=== PATIENT | female | born 1980 | race Caucasian/White ===

== ENCOUNTER 2017-06-07 20:59 | Emergency (ER) | payer OTHER ==
[~2017-06-07 20:59] MED LIST: ALBUTEROL0.09 MG/A1 INH; AMOXICILLIN500 M1 PO; AUGMENTIN 875 M1 TAB PO; BACTRIM DS 8001 TAB PO; MOBIC15 MG PO; MOTRIN 600 MG600 MG PO; ORSYTHIA 0.02 M1 TAB PO; PREDNISONE 20MG20 MG PO; PREDNISONE50 MG PO; TESSALON PERLE100 MG PO; ZITHROMAX Z-PA250 M1 PO
[2017-06-07 21:55] LABS: ABSOLUTE BASOPHIL COUNT 0 /CUMM (0.0-0.2); ABSOLUTE EOSINOPHIL COUNT 0.2 /CUMM (0.0-0.7); ABSOLUTE GRANULOCYTE CT 6.2 /CUMM (1.4-6.5); ABSOLUTE LYMPH COUNT 2.5 /CUMM (1.2-3.4); ABSOLUTE MONOCYTE COUNT 0.7 /CUMM (0.10-0.60); BASOPHIL % 0.3 % (0.0-2.0); EOSINOPHIL % 2.1 % (0-5); GRANULOCYTE % 64.2 % (42.2-75.2); MEAN CORPUSCULAR VOLUME 93.9 FL (81.0-99.0); MEAN PLATELET VOLUME 8.9 FL (7.4-10.4); PLATELET COUNT 259 /CUMM (130-400); RBC DISTRIBUTION WIDTH 14.4 % (11.5-14.5); RED BLOOD CELL CT 4.48 /CUMM (4.20-5.40); WHITE BLOOD CELL COUNT 9.6 /CUMM (4.8-10.8)
--- NOTE | 2017-06-07 22:02 | ED DYSPNEA/ASTHMA COMPLAINT ---
History of Present Illness General Chief Complaint: General Adult Stated Complaint: ANXIETY ATTACK Source: patient Exam Limitations: no limitations Vital Signs & Intake/Output Vital Signs & Intake/Output Vital Signs Date Time Temp Pulse Resp B/P B/P Pulse O2 O2 Flow FiO2 Mean Ox Delivery Rate 06/07 2232 76 20 122/72 98 Room Air 06/07 2125 98.9 69 16 127/82 100 Room Air ED Intake and Output 06/08 0000 06/07 1200 Intake Total Output Total Balance Patient 140 lb Weight Weight Reported by Patient Measurement Method Allergies Coded Allergies: NO KNOWN ALLERGIES (12/26/13) Reconcile Medications Amoxicillin 500 MG TABLET 1 TAB PO BID INFECTION Ethinyl Estradiol/Levonorges (Orsythia 0.02 MG-0.1 MG) 1 TAB TAB 1 TAB PO DAILY CONTROL (Reported) Hydroxyzine Pamoate (Vistaril) 25 MG CAPSULE 1 CAP PO TID PANIC Sulfamethoxazole/Trimethopri (Bactrim Ds 800 MG-160 MG) 1 TAB TAB 1 TAB PO BID INFECTION Triage Note: PT RECENTLY SEEN IN A HOSPITAL IN [place] FOR ANXIETY WHERE SHE WAS GIVEN VISTARIL WHICH PUT HER TO SLEEP. JUST GOT HOME FROM [place]IP AND FEELS LIKE "EVERYTHING IS CAVING IN" AND ON HER. FEELS CHEST TIGHTNESS, SOB AND RAPID BREATHING. STATES IT RADIATES INTO BACK AND INTO LEFT KIDNEY AREA WHICH IS THE ONLY KIDNEY SHE HAS. ANXIETY AND SYMPTOMS WORSE AT NIGHT WHEN LAYING DOWN. FEELS LIGHT THROAT IS CLOSING. ? WHETHER SHE WAS BIT BY A TICK PRIOR TO VACATION. DID NOT NOTICE A RASH BUT HAS BEEN PULLING TICKS OFF HER. DENIES SI/HI AND DENIES RECENT MED CHANGES OR PSYCHOSOCIAL STRESSORS. 1/2 PPD SMOKER AND ON BC. Triage Nurses Notes Reviewed? yes Onset: Gradual Duration: week(s):, waxing and waning Timing: recent history Severity: moderate Activities at Onset: rest, sleep Prior Episodes/Possible Cause: frequent episodes Modifying Factors: Improves With: rest. Associated Symptoms: "I panic" : No Patient currently breastfeeds: No HPI: 36 yo woman presents with 1 week history of the sensation of panic, which occurs prior to going to bed. "I was on vacation in [place]... I lay down and felt suddenly very anxious, like the world was closing in on me." She notes that she has had similar symptoms, "nearly every night," for the past week. "I lie down and when my head hits the pillow, I feel all panicky." She notes the sensation of shortness of breath, with palpitations. These symptoms self-tracy after 10-15 minutes. She is otherwise well, cannot identify the trigger. Past History Travel History Traveled to [place] past 21 day No Medical History Any Pertinent Medical History? 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 No Review of Systems Review of Systems Constitutional: Reports: no symptoms. EENTM: Reports: no symptoms. Respiratory: Reports: no symptoms. Cardiovascular: Reports: no symptoms. GI: Reports: no symptoms. Genitourinary: Reports: no symptoms. Musculoskeletal: Reports: no symptoms. Skin: Reports: no symptoms. Neurological/Psychological: Reports: no symptoms. Hematologic/Endocrine: Reports: no symptoms. Immunologic/Allergic: Reports: no symptoms. All Other Systems: Reviewed and Negative Physical Exam Physical Exam General Appearance: well developed/nourished, no apparent distress Head: atraumatic, normal appearance Eyes: Bilateral: normal appearance. Ears, Nose, Throat: normal pharynx, normal ENT inspection Neck: normal inspection, supple, full range of motion Respiratory: normal breath sounds, chest non-tender, no respiratory distress, quiet respiration, lungs clear Cardiovascular: regular rate/rhythm Gastrointestinal: normal bowel sounds, soft, non-tender, no organomegaly Extremities: normal inspection Neurologic/Psych: no motor/sensory deficits, awake, alert, oriented x 3 Skin: intact, normal color, warm/dry Core Measures ACS in differential dx? No Severe Sepsis Present: No Septic Shock Present: No Progress Differential Diagnosis: panic vs other. Plan of Care: Orders Procedure Date/time Status TROPONIN LEVEL 06/07 2132 Complete D-DIMER 06/07 2132 Complete COMPREHENSIVE METABOLIC PANEL 06/07 2132 Complete CBC WITHOUT DIFFERENTIAL 06/07 2132 Complete EKG 06/07 2131 Active Laboratory Tests 06/07/17 2140: Anion Gap 12, Estimated GFR > 60, BUN/Creatinine Ratio 18.8, Glucose 94, Calcium 10.1, Total Bilirubin 0.6, AST 20, ALT 24, Alkaline Phosphatase 50, Troponin I < 0.01, Total Protein 7.2, Albumin 4.6, Globulin 2.6, Albumin/Globulin Ratio 1.8, D-Dimer High Sensitivty < 200, CBC w Diff NO MAN DIFF REQ, RBC 4.48, MCV 93.9, MCH 31.0, RDW 14.4, MPV 8.9, Gran % 64.2, Lymphocytes % 26.2, Monocytes % 7.2, Eosinophils % 2.1, Basophils % 0.3, Absolute Granulocytes 6.2, Absolute Lymphocytes 2.5, Absolute Monocytes 0.7 H, Absolute Eosinophils 0.2, Absolute Basophils 0, PUBS MCHC 33.0 Initial ED EKG: normal axis, normal intervals, normal p-waves, normal QRS complex, normal sinus rhythm Departure Departure Disposition: HOME OR SELF CARE Condition: Stable Clinical Impression Primary Impression: Anxiety Referrals: PATIENT HAS NO PRIMARY CARE DR (PCP/Family) Departure Forms: Customer Survey General Discharge Information Prescriptions: Current Visit Scripts Hydroxyzine Pamoate (Vistaril) 1 CAP PO TID #30 CAP Comments discussed at length with patient... her story and exam is most consistent with panic attack... will give short trial of benzo's... discussed at length... pt also encouraged to follow up with cardiology. Critical Care Note Critical Care Note Critical Care Time: non-applicable
[2017-06-07 22:32] VITALS: BP 122/72
[2017-06-07] MEDS ORDERED: VISTARIL25 M1 PO (23:23)
== END 2017-06-07 23:34 ==
LOC: ERH 20:59
PROVIDERS: Emergency Medicine
DX: F41.9 Anxiety disorder, unspecified (principal)
CPT/HCPCS: 93005; 93010

== ENCOUNTER 2018-07-21 06:38 | Emergency (ER) | payer OTHER ==
[~2018-07-21] VITALS: Ht 157.5 cm; Wt 62.6 kg
[~2018-07-21 06:38] MED LIST changes: +VISTARIL25 M1 PO
--- NOTE | 2018-07-21 07:22 | ED GENERAL ADULT ---
History of Present Illness General Chief Complaint: General Adult Stated Complaint: HI C/O LUMP UNDER LT BREAST Source: patient Exam Limitations: no limitations Vital Signs & Intake/Output Vital Signs & Intake/Output Vital Signs Date Time Temp Pulse Resp B/P B/P Pulse O2 O2 Flow FiO2 Mean Ox Delivery Rate 07/21 0810 98.1 74 18 128/70 98 Room Air 07/21 0653 Room Air 07/21 0647 99.0 80 16 131/76 99 Room Air Allergies Coded Allergies: NO KNOWN ALLERGIES (12/26/13) Reconcile Medications Amoxicillin 500 MG TABLET 1 TAB PO BID INFECTION Ethinyl Estradiol/Levonorges (Orsythia 0.02 MG-0.1 MG) 1 TAB TAB 1 TAB PO DAILY CONTROL (Reported) Hydroxyzine Pamoate (Vistaril) 25 MG CAPSULE 1 CAP PO TID PANIC Indomethacin 25 MG CAPSULE 1 CAP PO TID COSTROCHONDRITIS with food Sulfamethoxazole/Trimethopri (Bactrim Ds 800 MG-160 MG) 1 TAB TAB 1 TAB PO BID INFECTION Triage Note: PT STATES THAT SHE ONLY HAS L SIDE KIDNEY AND THAT SHE HAS BEEN HAVING A LOT OF PROCEDURES DUE TO ITS ENLARGED FOR THE PAST 2 DAYS SHE HAS NOTED SWELLING AND SOME DISCOMFORT UNDER HER SKIN, L SIDE LOW RIB CAGE AREA AND IS CONCERNED. PTS KIDNEY DOCTOR IS OUT OF [place] . Triage Nurses Notes Reviewed? yes Onset: Gradual Duration: day(s): (2) Timing: recent history Severity: moderate Severity Numbers: 7 No Modifying Factors: none Modifying Factors: Worsens With: other (UPON LYING ON THAT SIDE). : No Patient currently breastfeeds: No HPI: MRS. HERRMANN IS A 37 YEAR OLD FEMALE WHO HAS A HISTORY OF POLYCYSTIC KIDNEY DISEASE. SHE CAME IN COMPLAINING OF A "LUMP" ON THE LEFT ANTERIOR CHEST WALL. IT BEGAN 2 DAYS AGO AND IT HAS PROGRESSIVELY ENLARGED. SHE DESCRIBES THE PAIN DISCOMFORT, HOWEVER LAST NIGHT SHE FELT IT WAS RADIATING TO HER BACK SHE LAYED ON HER ABDOMEN WHILE SLEEPING. THE SEVERITY OF HER PAIN IS 7/10. DUE TO THE FACT THAT HER LEFT KIDNEY IS ENLARGED AND HAS SHIFTED UPWARD, SHE IS WORRIED THAT IT MIGHT BE RELATED TO HER KIDNEY PROBLEMS. PATIENT STATED THAT HER USUAL STATE INCLUDES A DULL/ACHE OR SOMETIMES STABBING PAIN ON THE LEFT SIDE OF HER BACK IN THE THORACIC AREA, THEREFORE IT IS DIFFICULT FOR HER TO DIFFERENTIATE THE PAIN. Past History Travel History Traveled to [place] past 21 day No Medical History Any Pertinent Medical History? 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 No Review of Systems Review of Systems Constitutional: Denies: no symptoms. EENTM: Denies: no symptoms. Respiratory: Denies: no symptoms. Cardiovascular: Denies: no symptoms. GI: Denies: no symptoms. Genitourinary: Denies: no symptoms, see HPI, discharge, dysuria, frequency, hematuria, hesitation, nocturia, pain, urgency. Musculoskeletal: Reports: see HPI. Skin: Denies: no symptoms. Neurological/Psychological: Denies: no symptoms. Hematologic/Endocrine: Denies: no symptoms. Immunologic/Allergic: Denies: no symptoms. All Other Systems: Reviewed and Negative Physical Exam Physical Exam General Appearance: well developed/nourished, alert, awake, mild distress Head: atraumatic, normal appearance Eyes: Bilateral: normal appearance. Ears, Nose, Throat: normal pharynx, normal ENT inspection Neck: normal inspection, supple, full range of motion Respiratory: normal breath sounds, chest non-tender, no respiratory distress Cardiovascular: regular rate/rhythm, normal peripheral pulses Gastrointestinal: normal bowel sounds, soft, non-tender Rectal: deferred Back: normal inspection Extremities: normal inspection Neurologic/Psych: no motor/sensory deficits Skin: intact Core Measures ACS in differential dx? No CVA/TIA Diagnosis: No Sepsis Present: No Sepsis Focused Exam Completed? No Progress Differential Diagnoses I considered the following diagnoses in my evaluation of the patient: [ Costochondritis, mass] Plan of Care: Orders Procedure Date/time Status URINE 07/21 721 Complete Laboratory Tests 07/21/18 0724: Urine Test NEGATIVE Diagnostic Imaging: Viewed by Me: Radiology Read. Discussed w/RAD: Radiology Read. CXR Impression: PATIENT: BOB HERRMANN PRESENT AGE: 37 PATIENT ACCOUNT NO: [id number] : 82 LOCATION: [facility] ORDERING PHYSICIAN: Yon Leal MD SERVICE DATE: 07/21/18 EXAM TYPE: RAD - XRY-CHEST XRAY, TWO VIEWS EXAMINATION: XR CHEST CLINICAL INFORMATION: Lump to left anterior chest wall COMPARISON: 05/24/2014 TECHNIQUE: 2 views of the chest were obtained. FINDINGS: The lungs are well expanded. There is no focal consolidation , edema, or effusion. No pneumothorax. The cardiomediastinal silhouette is within normal limits. No acute osseous abnormality. No abnormal soft tissue contour on the lateral view. IMPRESSION: Clear lungs. No focal osseous abnormality identified. DICTATED BY: Jamaal Parker MD DATE/TIME DICTATED:754 AVIAN KEEPER:LORI DATE/TIME TRANSCRIBED:07/21/18754 CONFIDENTIAL, DO NOT COPY WITHOUT APPROPRIATE AUTHORIZATION. <Electronically signed in Other Vendor System> SIGNED BY: Jamaal Parker MD 07/21/18 0800 Initial ED EKG: none Departure Departure Disposition: HOME OR SELF CARE Condition: Stable Clinical Impression Primary Impression: Costochondritis Referrals: Patient Has No Primary Care Dr (PCP/Family) Additional Instructions: Take Indocin as prescribed. Return if symptoms worsen or for any concerns. Departure Forms: Customer Survey General Discharge Information Prescriptions: Current Visit Scripts Indomethacin 1 CAP PO TID #30 CAP with food Critical Care Note Critical Care Note Critical Care Time: non-applicable
--- NOTE | 2018-07-21 08:00 | RADIOLOGY REPORT ---
EXAMINATION: XR CHEST CLINICAL INFORMATION: Lump to left anterior chest wall COMPARISON: 05/24/2014 TECHNIQUE: 2 views of the chest were obtained. FINDINGS: The lungs are well expanded. There is no focal consolidation, edema, or effusion. No pneumothorax. The cardiomediastinal silhouette is within normal limits. No acute osseous abnormality. No abnormal soft tissue contour on the lateral view. IMPRESSION: Clear lungs. No focal osseous abnormality identified.
[2018-07-21] MEDS ORDERED: INDOMETHACIN25 M1 PO (08:09)
[2018-07-21 08:10] VITALS: BP 128/70
== END 2018-07-21 08:10 ==
LOC: ERH 06:38
DX: M94.0 Chondrocostal junction syndrome [Tietze] (principal); R07.89 Other chest pain
CPT/HCPCS: 71046; 81025